=== PATIENT | female | born 1970 | race American Indian/Alaskan Native ===

== ENCOUNTER 2017-06-12 17:24 | Emergency (ER) | payer OTHER ==
[2017-06-12 18:09] VITALS: TEMP 98.8; O2SAT 100
--- NOTE | 2017-06-12 19:20 | C.PDOC ---
History Of Present Illness 47 y/o female presents to ED with complaints of cough for 2 weeks. Patient is requesting a stronger cough medicine because the one she has is not relieving symptoms. Patient denies any other complaints at this time. Time Seen by Provider: 06/12/17 19:06 Chief Complaint (Nursing): Cough, Cold, Congestion History Per: Patient History/Exam Limitations: no limitations Onset/Duration Of Symptoms: Days Current Symptoms Are (Timing): Still Present Past Medical History Reviewed: Historical Data, Nursing Documentation, Vital Signs Vital Signs: Last Vital Signs Temp 98.8 F 06/12/17 18:06 Pulse 71 06/12/17 19:28 Resp 18 06/12/17 19:28 BP 124/75 06/12/17 19:28 Pulse Ox 100 06/12/17 19:28 - Medical History PMH: HTN Surgical History: No Surg Hx Family History: States: No Known Family Hx - Social History Hx Tobacco Use: Yes Hx Alcohol Use: No Hx Substance Use: No - Immunization History Hx Tetanus Toxoid Vaccination: No Hx Influenza Vaccination: No Hx Pneumococcal Vaccination: No Review Of Systems Constitutional: Negative for: Fever, Chills Respiratory: Positive for: Cough. Negative for: Shortness of Breath Gastrointestinal: Negative for: Nausea, Vomiting, Abdominal Pain, Diarrhea Skin: Negative for: Rash Physical Exam - Physical Exam Additional Physical Exam Comments: Constitutional: No acute distress. WDWN. Head: Normocephalic. Atraumatic. Eyes: PERRL. EOMI. ENT: Moist mucous membranes. Neck: Supple. Cardiovascular: Regular rate and rhythm. Chest: No tenderness. Respiratory: Clear to auscultation bilaterally. GI: Soft. Nontender. Nondistended. Normoactive bowel sounds. No rebound. No guarding. Back: No CVA and no mid-line tenderness. Musculoskeletal: No tenderness or swelling of extremities. Skin: No rash. Neurologic: Alert, no focal deficit. ED Course And Treatment O2 Sat by Pulse Oximetry: 100 (RA) Pulse Ox Interpretation: Normal Disposition Counseled Patient/Family Regarding: Diagnosis, Need For Followup, Rx Given - Disposition Referrals: [facility] [Outside] Disposition: HOME/ ROUTINE Disposition Time: 19:20 Condition: STABLE Prescriptions: guaiFENesin/Dextromethorphan [guaiFENesin-DM] 10 ml PO Q6 #120 ml Instructions: Upper Respiratory Infection (ED) Forms: [facility] (Syrian), General Discharge Instructions - Clinical Impression Clinical Impression: Upper respiratory infection - PA / [employer]ER OR [employer] / Resident Statement MD/DO has reviewed & agrees with the documentation as recorded. - Scribe Statement The provider has reviewed the documentation as recorded by the Sussyibvanna Bruce All medical record entries made by the Annabelle were at my direction and personally dictated by me. I have reviewed the chart and agree that the record accurately reflects my personal performance of the history, physical exam, medical decision making, and the department course for this patient. I have also personally directed, reviewed, and agree with the discharge instructions and disposition.
[2017-06-12 19:29] VITALS: BP 124/75; PULSE 71; RESP 18
== END 2017-06-12 19:31 | disposition home or self-care (01) ==
LOC: C.ER 17:24
DX: J06.9 Acute upper respiratory infection, unspecified (principal)

== ENCOUNTER 2018-04-15 16:00 | Emergency (ER) | payer OTHER ==
[2018-04-15 16:18] VITALS: PULSE 67; RESP 18; TEMP 99.3; O2SAT 97
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
[2018-04-15 17:00] VITALS: BP 151/90
== END 2018-04-15 17:00 | disposition home or self-care (01) ==
LOC: C.ER 16:00
DX: L03.211 Cellulitis of face (principal); L55.9 Sunburn, unspecified; L98.8 Other specified disorders of the skin and subcutaneous tissue
CPT/HCPCS: 99283; J8540

== ENCOUNTER 2018-12-11 13:24 | Emergency (ER) | payer OTHER ==
[2018-12-11 13:40] VITALS: TEMP 98.6
[2018-12-11 15:00] LABS: BASO # 0.1 K/uL (0.0-0.2); BASO % 1.2 % (0.0-2.0); EOS # 0.1 K/uL (0.0-0.7); EOS % 0.6 % (0.0-4.0); HEMOGLOBIN 11.2 g/dL (11.0-16.0); LYMPH # 2.3 K/uL (1.0-4.3); LYMPH % 21.7 % (20.0-40.0); MEAN CELL VOLUME 80.9 fL (81.0-99.0); MEAN CORPUSCULAR HEMOGLOBIN 24.9 pg (27.0-31.0); MEAN CORPUSCULAR HGB CONC 30.7 g/dL (33.0-37.0); MEAN PLATELET VOLUME 9.3 fL (7.2-11.7); MONO # 0.8 K/uL (0.0-0.8); MONO % 7.3 % (0.0-10.0); NEUT # 7.4 K/uL (1.8-7.0); NEUT % 69.2 % (50.0-75.0); RBC 4.51 Mil/uL (3.80-5.20); WHITE BLOOD COUNT 10.6 K/uL (4.8-10.8)
[2018-12-11 15:28] LABS: ALB/GLOB RATIO 1.1 (1.0-2.1); ALBUMIN 3.8 g/dL (3.5-5.0); ALT/SGPT 12 U/L (9-52); AST/SGOT 182 U/L (14-36); BLOOD UREA NITROGEN 7 mg/dL (7-17); CALCIUM 8.9 mg/dl (8.6-10.4); GFR NON-AFRICAN AMERICAN > 60
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
[2018-12-11 16:49] VITALS: BP 159/96; PULSE 88; RESP 16
[2018-12-11 18:32] VITALS: O2SAT 97
--- NOTE | 2018-12-15 20:13 | CARD ---
APPROVED REPORT Date of service: 12/11/2018 EKG Measurement Heart [id number] <Conclusion> Normal sinus rhythm Left axis deviation Abnormal ECG
== END 2018-12-11 16:34 | disposition home or self-care (01) ==
LOC: C.ER 13:24
DX: M54.9 Dorsalgia, unspecified (principal); I10 Essential (primary) hypertension; Z72.0 Tobacco use

== ENCOUNTER 2019-01-09 18:15 | Emergency (ER) | payer SELFPAY | END 2019-01-09 20:18 | disposition home or self-care (01) | LOC: C.ER 18:15 ==